=== PATIENT | male | born 1975 | race Caucasian/White ===

== ENCOUNTER 2017-06-21 10:19 | Emergency (ER) | payer BC ==
[2017-06-21 10:46] VITALS: BP 132/77
--- NOTE | 2017-06-21 11:05 | UC ---
UC General HPI - HPI Summary HPI Summary: Per plant operations manager: ""I am having bad dehydration and a migraine." 1) Intermittent "auras" followed by frontal and "behind my eyes" headache with photophia for one week. Patient has tried acetaminophen and caffeine with "a little bit" relief. 2) Patient stated he has "malabsorption ... gastritis". Intermittent difuse abdominal pain and "dark, not quite black ... some greenish ... loose ... some of it was water" diarrhea for one to two weeks; mostly three to four episodes daily, but had twelve yesterday. Patient stated that he needs his prescriptions sent to [facility] but they are not listed as an option in our EMR." -here w/ his Karlos. -has had abd pain/diarrhea chronically x 2 yrs. has had GI work up in [place] and seeing an [facility] at [facility] currently. has appt with Dr Neda John later this month. has local PCP. -has had sinus infections in past. treated w/ lactose free levaquin through [facility]. denies kidney problems or tendon problems. -mild nausea, no vomiting. -states he is very dehydrated b/c he is excessively thirsty despite drinking copious water. has had > 2 L already today. does not quench thirst. -HADDAD is above and behind his eyes. no fevers or chills. + light sensitive. hasnt had a migraine in ~ 2 yrs. -abd discomfort is diffuse and non-localizing. not new. chronic x 2 yrs. it was worse yesterday than today. 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 also possible pancreatic insufficiency, but not given rx pancreatic enzymes. -takes paxil & benzo for PTSD from PCP, doesnt want to see psychiatrist any more as he has seen many and has tried "every medicine". -has been to various ERs for IV fluids he reports ([facility]). -h/o IV drug use in his 20s. smokes MJ daily. - History of Current Complaint Chief Complaint: UCGeneralIllness Stated Complaint: MIGRAINE, DIARRHEA, DEHYDRATION Time Seen by Provider: 06/21/17 10:38 - Allergy/Home Medications Allergies/Adverse Reactions: Allergies Allergy/AdvReac Type Severity Reaction Status Date / Time Lactose Intolerance (GI) AdvReac GI Upset Verified 06/21/17 10:39 NSAIDs AdvReac GI Upset Verified 06/21/17 10:39 Home Medications: Home Medications ALPRAZolam TAB* [Xanax TAB*] 0.5 - 1 mg PO Q6H PRN 06/21/17 [History Confirmed 06/21/17] Acetaminophen [Acetaminophen Extra Stren] 1,500 mg PO ONCE 06/21/17 [History Confirmed 06/21/17] PARoxetine HCL TAB* [Paxil TAB*] 20 mg PO DAILY 06/21/17 [History Confirmed 12/01] PMH/Surg Hx/FS Hx/Imm Hx Previously Healthy: No GI/ History: Other - "chronic gastritis" Other GI/ History: "chronic gastritis" Psychological History: Post Traumatic Stress Disorder Other History Of: Negative For: HIV, Hepatitis B, Hepatitis C - Surgical History Surgical History: Yes Surgery Procedure, Year, and Place: L knee surgery. abd- exploratory after accident. Lt HAND - PLATE & SCREWS/PINS - Family History Known Family History: Positive: None Negative: Cardiac Disease, Hypertension, Diabetes - Social History Alcohol Use: Weekly Substance Use Type: Marijuana Substance Use Comment - Amount & Last Used: Daily & 06/20/17 Smoking Status (MU): Former Smoker Type: eCigarettes When Did the Patient Quit Smoking/Using Tobacco: 2013 - Immunization History Most Recent Influenza Vaccination: Not the Season Review of Systems Constitutional: Negative Skin: Negative Eyes: Photophobia ENT: Sinus Pain/Tenderness Respiratory: Negative Cardiovascular: Negative Gastrointestinal: Abdominal Pain - diffuse, not local, Diarrhea Genitourinary: Negative Motor: Negative Neurovascular: Negative Musculoskeletal: Negative Neurological: Negative Psychological: Negative Is Patient Immunocompromised?: No All Other Systems Reviewed And Are Negative: Yes Physical Exam Triage Information Reviewed: Yes Appearance: Well-Nourished, Pain Distress - lights are off in exam room and he is wearing sunglasses. nohemy historian. Vital Signs: Initial Vital Signs Temp 98.2 F 06/21/17 10:33 Pulse 62 06/21/17 10:33 Resp 16 06/21/17 10:33 BP 132/77 06/21/17 10:33 Pulse Ox 100 06/21/17 10:33 Vital Signs Reviewed: Yes Eye Exam: Normal ENT: Positive: Pharynx normal, TMs normal, Sinus tenderness - B/L frontal tenderness, Other - nares w/ mild congestion. Negative: TM bulging, TM dull, TM red, Tonsillar swelling, Tonsillar exudate, Muffled voice Neck exam: Normal Neck: Positive: Supple, Nontender, No Lymphadenopathy Respiratory Exam: Normal Respiratory: Positive: Lungs clear, Normal breath sounds, No respiratory distress, No accessory muscle use. Negative: Crackles, Rhonchi, Stridor, Wheezing Cardiovascular Exam: Normal Cardiovascular: Positive: RRR, No Murmur, Brisk Capillary Refill Abdomen Description: Positive: No Organomegaly, Soft, Other: - diffuse mild tenderness. Negative: CVA Tenderness (R), CVA Tenderness (L), Distended, Guarding, Hepatomegaly Bowel Sounds: Positive: Present Musculoskeletal Exam: Normal Neurological Exam: Normal Psychological Exam: Normal Skin Exam: Normal Course/Dx - Course Course Of Treatment: Dx sinusitis - levaquin (lactose free confrimed) calleded into [facility]. 500mgs 1 po qd x10 d. #10, 0 RFs. has used this in past w/ good success, no tendon issues or GI issues. denies kindey disease. -SG is < 1.005. limit water intake to at least < 1 L per day until further eval. needs w/u for Diabetes insipidus which we discussed. -diarrhea/ abd pain is chronic (x 2 yrs), no change or different today. has had eval in [place] and has new GI MD he will be seeing this month at [facility] (Dr Neda John) . If abd pain worsens or changes, needs to go to ER. pain is diffuse, non- local and non-specific w/o fevers or chills. They understood me well and agree w/ plan. -he does not wish to go to ER but we did discuss this recommendation. - Differential Dx - Multi-Symptom Differential Diagnoses: Other - IBS, Diabetes insipidus, sinusitis, migraine. Provider Diagnoses: sinusitis triggering migraine, IBS, diarrhea, polydipsia Discharge - Discharge Plan Condition: Stable Disposition: HOME Patient Education Materials: Sinusitis (ED), Chronic Diarrhea (ED) Referrals: Amanda Hernandez MD [Primary Care Provider] - Additional Instructions: -Make sure to take a probiotic daily while on antibiotics to help prevent a potential complication of antibiotic use called c diff. Some well known brands that can be found OTC are florastor, align and Phonetime. Make sure to complete the entire prescription unless advised otherwise by your health care provider. -we discussed that the urine is very dilute and you need to decrease the amount of water you are drinking as seizures can occur from drinking too much water amongst other complications. There are many possibilities that could be causing your thirst and you should be worked up further by your primary care physician and most likely a occupational therapist rehab manager (which your PCP can refer you to). One of the possibilities is diabetes insipidus, but requires an extensive work up to diagnose. -We are checking your electrolytes and blood count today. You should call in 1- 2 days for results. If there is a significant abnormality in the results, you will be told to go the the ER for correction. We also discussed that lab results at the facility do not have rapid turn around and discussed going to the ER. -Your headache is consistent with sinusitis, you have requested dairy free levaquin called into [facility] which I have done. you denied any kidney problems (which can contraindicate the use of this antibiotic). Risk of tendon rupture was discussed. You reported that levaquin is what you have used in the past with good success for sinusitis without GI side effects. -Make sure to follow through with evaluation/work up through your infrastructure engineer at [facility]. -make sure you follow up with your PCP on Friday and call for today's lab results. -if you feel lightheaded or dizzy or symptoms worsen, you should go the ER. -We also discussed that CT scan of your head is not indicated for your symptoms at this point. However, if your symptoms change or persist despite treatment with levaquin, CT could be considered.
== END 2017-06-21 12:06 | disposition home or self-care (01) ==
LOC: UCCORT 10:19
DX: J32.9 Chronic sinusitis, unspecified (principal); G43.109 Migraine with aura, not intractable, without status migrainosus; K58.0 Irritable bowel syndrome with diarrhea; R63.1 Polydipsia; F43.10 Post-traumatic stress disorder, unspecified; F12.90 Cannabis use, unspecified, uncomplicated; Z87.891 Personal history of nicotine dependence
CPT/HCPCS: 36415; 80048; 81003; 99212; G0463

== ENCOUNTER 2019-07-03 11:39 | Emergency (ER) | payer BC ==
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
[2019-07-03 12:26] VITALS: BP 127/90
== END 2019-07-03 13:17 | disposition home or self-care (01) ==
LOC: UCCORT 11:39
DX: M67.442 Ganglion, left hand (principal); M79.642 Pain in left hand; R03.0 Elevated blood-pressure reading, without diagnosis of hypertension; M54.5 Low back pain; M79.7 Fibromyalgia; F17.210 Nicotine dependence, cigarettes, uncomplicated; Z88.6 Allergy status to analgesic agent
CPT/HCPCS: 99213; G0463